=== PATIENT | male | born 1955 | race Caucasian/White ===

== ENCOUNTER → 2023-01-17 | Outpatient (REF) | payer MEDICARE | LOC: M LAB REF 15:52 | PROVIDERS: ATTEND Surgery | DX: D48.5 Neoplasm of uncertain behavior of skin (principal) ==

== ENCOUNTER → 2025-03-07 | Outpatient (REF) | payer MEDICARE | LOC: M SFHCDERM 16:35 | PROVIDERS: ATTEND Nurse Practitioner Family | DX: C44.222 Squamous cell carcinoma of skin of right ear and external auricular canal (principal) ==